=== PATIENT | female | born 1945 | race Caucasian/White ===

== ENCOUNTER 2021-03-17 13:40 | Observation (INO) ==
--- NOTE | 2021-03-17 14:03 | Emergency Department Note ---
Impression & Plan Left arm pain, Diabetes, Hypertension ED Provider Note NAME: YASMEEN WILKES AGE: 76 SEX: F : 1945 ARRIVES VIA: Walk-In INFORMANT: Patient, ED PROVIDER(S): Fredrick Callejas MD Chief Complaint: Arm pain HPI: Patient does present due to concern for left arm pain. Patient states that she had 2 episodes during the past week. Patient believes that she had an episode Friday or Friday evening where she had left-sided arm pain that was dull achy and rating down the left upper extremity. The patient had a re currence of this yesterday. The patient does admit that this did occur while crocheting and she is trying to complete a blanket for her great granddaughter. The patient denies any known heart history but does have family history and father and mother of heart disease. Patient denies any upper respiratory symptoms. The patient is right-hand dominant. The patient denies any recent overuse or trauma to the left upper extremity. The patient does relate that she did take an aspirin and Tylenol last evening which improved her symptoms. The patient had sent a note to her primary care physician's office who was referred here for further evaluation and treatment to be Dr. Marcos. Patient denies any history of DVT or PE. No recent surgeries, procedures, or hospitalizations. ROS: See HPI for pertinent positives and negatives. A total of 10 systems were reviewed and otherwise negative. Past medical history: See below Surgical history: See below Social history: See below Physical Exam: GENERAL: NAD, wearing glasses, wearing a mask, non-toxic. EYE EXAM: Normal conjunctiva. PERRL, no anisocoria and EOM's grossly intact w/o pain. NECK: Supple, no nuchal rigidity, no adenopathy, non-tender. No signs of meningismus. LUNGS: Clear to auscultation. Normal chest wall mechanics. HEART: NSR, no MRG. ABDOMEN: Abdomen soft, non-tender, normo-active bowel sounds, no masses, no rebound or guarding. BACK: No CVA TTP. SKIN: No rashes and no bruising. UPPER EXTREMITIES: Upper extremities are grossly normal. No reproducible arm pain with good range of motion, no obvious deformity, neurovascular intact distally. LOWER EXTREMITIES: Grossly normal, no edema. Negative Homans' sign bilaterally. NEURO EXAM: A&O x3, cranial nerves II-XII grossly intact, normal speech, moves all 4 extremities on command w/o issue. Differential diagnoses: Cardiac ischemia, aortic dissection, pulmonary embolism, pneumothorax, pneumonia, pericarditis, myocarditis, esophageal rupture, GERD, cholecystitis, pancreatitis, musculoskeletal, as well as other pathologies. Course: Patient was seen and evaluated the bedside. Full history physical exam was performed. EKG interpreted by me Normal sinus rhythm, rate of 98, wide QRS, left axis deviation, bundle branch block pattern. T wave inversion in lead III as well as anteriorly Patient's right bundle branch block and T wave inversion appears to be old from comparison EKG July 22, 2019. The patient did have worsening T wave inversions in June 2019 in the lateral leads which are no longer present today. Imaging Studies: See Below Cardiac monitoring: An order was placed for continuous cardiac monitoring. The monitor shows a rate of 88 with sinus rhythm. MDM: Patient was seen due to concern for intermittent left upper extremity pain. The patient does not have any reproducible pain or neck pain. Patient's EKG does not appear acutely changed. The patient's troponin is acceptable. Patient has very mild leukopenia with a normal H&H and platelet count. The patient's kidney function is unremarkable. Patient is not scheduled. I discussed with the patient that this could be atypical chest pain and the concern was that she could still have disease without having a positive troponin. Also stated that given her lack of acute pain at the time that she presented symptoms and negative EKG does not rule out heart disease either. After further discussion with the patient and patient's at bedside they are amenable to observati on and treatment. I did speak the on-call hospitalist Nadine Mtz PA-C and the patient was admitted to the medicine service by Dr. Mohamud. Past Med/Surg History Medical History Diabetes mellitus, type 2 NIDDM Hearing deficit History of nephrolithiasis History of TMJ disorder LEFT SIDE-LAST LOCKED 1 YEAR AGO-CAN MASSAGE ARE TO SHIFT JAW Hyperlipidemia Hypertension Osteoarthritis Urgency of urination Surgical History History of cataract surgery LEFT History of colonoscopy with polypectomy History of dilatation and curettage History of left breast biopsy x2--benign History of lithotripsy x5 History of right cataract surgery SEP 2019 History of tooth extraction Family History Father Family history of diabetes mellitus Lung cancer Grandmother Heart disease Grandfather Heart disease Family/Other No problems noted. Grandmother (Paternal) Family history of diabetes mellitus Sister No family history of adverse response to anesthesia PONV Social History Smoking Status: Former smoker Tobacco Type: Cigarettes packs per day: 0.5; Years Smoked: 10; Number of Years Since Quit: 35; Second Hand Exposure: Yes (FATHER SMOKED); Hx Alcohol Use: Yes Alcohol type: wine and hard liquor Alcohol Intake Frequency: 2-4 x/Month Hx Substance Use: No Preferred Language: Chinese Communication Ability: Effective Destination Coordinator Required: No Beliefs That Will Affect Care: None marital status: Current Living Situation: Spouse current occupational status: retired Feels Safe at Home: Yes Assistive Devices: Glasses Allergies Allergies Allergy/AdvReac Type Severity Reaction Status Date / Time clonidine Allergy Mild "fuzzy" Verified 03/17/21 15:41 feeling Home Meds Home Medications Medication Instructions Recorded Confirmed aspirin 81 mg tablet,delayed 81 mg PO BID PRN 07/29/19 03/17/21 release cyanocobalamin (vitamin B-12) 1,000 mcg PO QAM 07/29/19 03/17/21 1,000 mcg tablet (Vitamin B-12) lisinopril 5 mg tablet 5 mg PO QAM 07/29/19 03/17/21 meloxicam 15 mg tablet 15 mg PO DAILY PRN 07/29/19 03/17/21 metformin 500 mg tablet 500 mg PO TID 07/29/19 03/17/21 potassium citrate 15 mEq (1,620 15 meq PO BID 07/29/19 03/17/21 mg) tablet,extended release (Urocit-K 15) rosuvastatin 5 mg tablet 5 mg PO HS 07/29/19 03/17/21 acetaminophen 500 mg tablet 500 mg PO Q6H PRN 03/17/21 03/17/21 (Tylenol Extra Strength) Results & Data (ED) Vital Signs Vital Signs - 24 hr 03/17/21 13:43 03/17/21 14:43 03/17/21 16:30 Temperature 36 C L Temperature Source Temporal Artery Scan Oral Pulse Rate 102 H Pulse Rate [Apical] 74 Respiratory Rate 18 20 Respiratory Effort / Characteristics Non-Labored Non-Labored Respiratory Depth Normal Normal Blood Pressure 150/104 H Blood Pressure [Right Arm] 129/94 Blood Pressure Mean 119 Blood Pressure Mean [Right Arm] 105 Pulse Oximetry 99 96 Oxygen Delivery Method Room Air Room Air Room Air Sepsis Recent Fever Within 48 Hours No Sepsis New/Unexplained Change in Mental Status No Sepsis Action Taken by Nursing No Action Required 03/17/21 18:30 Temperature Temperature Source Pulse Rate Pulse Rate [Apical] 70 Respiratory Rate 18 Respiratory Effort / Characteristics Respiratory Depth Blood Pressure Blood Pressure [Right Arm] 130/78 Blood Pressure Mean Blood Pressure Mean [Right Arm] 95 Pulse Oximetry 98 Oxygen Delivery Method Sepsis Recent Fever Within 48 Hours Sepsis New/Unexplained Change in Mental Status Sepsis Action Taken by Long-Term Medications Current Medication List: was personally reviewed by me Laboratory Data Attestation: I reviewed the patient's lab results. Result diagrams: 03/17/21 14:30 03/17/21 14:30 Lab Results 03/17/21 03/17/21 03/17/21 Range/Units 14:30 14:30 14:30 WBC 4.69 L (4.8-10.8) K/uL RBC 4.62 (4.2-5.4) M/uL Hgb 13.0 (12.0-16.0) g/dL Hct 41.1 (37-47) % MCV 89.0 (80-100) fL MCH 28.1 (25-34) pg MCHC 31.6 L (32-36) g/dL RDW Std Deviation 48.8 H (36.4-46.3) fL RDW Coeff of Zoila 15.1 H (11.5-14.5) % Plt Count 209 (130-400) K/uL MPV 11.0 H (7.4-10.4) fL Immature Gran % (Auto) 0.0 % Neut % (Auto) 61.0 % Lymph % (Auto) 27.5 % [place] % (Auto) 9.4 % Eos % (Auto) 1.9 % Baso % (Auto) 0.2 % Neut # (Auto) 2.86 (1.4-6.5) K/uL Lymph # (Auto) 1.29 (1.2-3.4) K/uL [place] # (Auto) 0.44 (0.11-0.59) K/uL Eos # (Auto) 0.09 (0-0.5) K/uL Baso # (Auto) 0.01 (0-0.2) K/uL Immature Gran # (Auto) 0.00 (0.00-0.02) K/uL PT 9.6 (9.0-12.0) Seconds INR 0.9 (0.9-1.1) APTT 26.6 (21.0-31.0) Seconds PTT Ratio 1.0 Sodium 143 (136-145) mmol/L Potassium 3.9 (3.5-5.1) mmol/L Chloride 106 (98-107) mmol/L Carbon Dioxide 27 (21-32) mmol/L Anion Gap 10 (3-11) BUN 14 (6-23) mg/dl Creatinine 0.75 (0.6-1.2) mg/dl Est Cr Clr Drug Dosing 63.3 ml/min Est GFR ( Amer) 90.4 ml/min Est GFR (Non-Af Amer) 78.0 ml/min BUN/Creatinine Ratio 18.7 (10-20) Glucose 102 H (70-99(Fasting)) mg/dl Calcium 9.1 (8.5-10.1) mg/dl Total Bilirubin 0.5 (0.2-1.0) mg/dl AST 19 (13-39) U/L ALT 12 (7-52) U/L Alkaline Phosphatase 61 (34-104) U/L Troponin I < 0.03 (0-0.04) ng/ml Total Protein 6.9 (6.0-8.3) gm/dl Albumin 4.0 (3.4-5.0) gm/dl Globulin 2.9 (2.5-4.0) gm/dl Albumin/Globulin Ratio 1.4 (0.9-2) SARS-CoV-2, RNA, NAAT (NEGATIVE) 03/17/21 Range/Units 17:00 WBC (4.8-10.8) K/uL RBC (4.2-5.4) M/uL Hgb (12.0-16.0) g/dL Hct (37-47) % MCV (80-100) fL MCH (25-34) pg MCHC (32-36) g/dL RDW Std Deviation (36.4-46.3) fL RDW Coeff of Zoila (11.5-14.5) % Plt Count (130-400) K/uL MPV (7.4-10.4) fL Immature Gran % (Auto) % Neut % (Auto) % Lymph % (Auto) % [place] % (Auto) % Eos % (Auto) % Baso % (Auto) % Neut # (Auto) (1.4-6.5) K/uL Lymph # (Auto) (1.2-3.4) K/uL [place] # (Auto) (0.11-0.59) K/uL Eos # (Auto) (0-0.5) K/uL Baso # (Auto) (0-0.2) K/uL Immature Gran # (Auto) (0.00-0.02) K/uL PT (9.0-12.0) Seconds INR (0.9-1.1) APTT (21.0-31.0) Seconds PTT Ratio Sodium (136-145) mmol/L Potassium (3.5-5.1) mmol/L Chloride (98-107) mmol/L Carbon Dioxide (21-32) mmol/L Anion Gap (3-11) BUN (6-23) mg/dl Creatinine (0.6-1.2) mg/dl Est Cr Clr Drug Dosing ml/min Est GFR ( Amer) ml/min Est GFR (Non-Af Amer) ml/min BUN/Creatinine Ratio (10-20) Glucose (70-99(Fasting)) mg/dl Calcium (8.5-10.1) mg/dl Total Bilirubin (0.2-1.0) mg/dl AST (13-39) U/L ALT (7-52) U/L Alkaline Phosphatase (34-104) U/L Troponin I (0-0.04) ng/ml Total Protein (6.0-8.3) gm/dl Albumin (3.4-5.0) gm/dl Globulin (2.5-4.0) gm/dl Albumin/Globulin Ratio (0.9-2) SARS-CoV-2, RNA, NAAT NEGATIVE (NEGATIVE) Imaging Data Radiologist's Impression: Chest X-Ray 03/17/21 13:47 SINGLE VIEW CHEST CLINICAL HISTORY: Atypical chest pain FINDINGS: An AP, portable, upright chest radiograph is compared to study dated 07/14/2019. The cardiomediastinal silhouette is unremarkable. There is mild bibasilar atelectasis. The lungs and pleural spaces are otherwise clear. No pneumothorax is seen. The skeletal structures are osteopenic. The bony thorax is grossly intact. An indeterminant 2.5 cm linear density projects over the right upper quadrant of the abdomen. IMPRESSION: 1. No active disease in the chest. 2. An indeterminant 2.5 cm linear density projects over the right upper quadrant of the abdomen. Clinical correlation will be required. ACT 112: Negative or not required by law. Electronically signed by: Chace Juan M.D. 03/17/2021 3:01 PM Discharge Plan Visit Data Chief Complaint: Cardiac Assessment Stated Complaint: PAIN INTO LEFT ARM, UNKNOWN REASON,DIZZINESS ED Provider: Fredrick Callejas Discharge Problem: Left arm pain, Diabetes, Hypertension Forms Stand Alone Forms: [facility] [place] [facility] Prescriptions Prescriptions: No Action metformin 500 mg Tablet 500 mg PO TID RF: 0 meloxicam 15 mg Tablet 15 mg PO DAILY PRN (Reason: Pain) RF: 0 cyanocobalamin (vitamin B-12) [Vitamin B-12] 1,000 mcg Tablet 1,000 mcg PO QAM RF: 0 aspirin 81 mg Tablet,Delayed Release (Dr/Ec) 81 mg PO BID PRN (Reason: chest or arm pain) RF: 0 lisinopril 5 mg Tablet 5 mg PO QAM RF: 0 rosuvastatin 5 mg Tablet 5 mg PO HS RF: 0 potassium citrate [Urocit-K 15] 15 mEq Tablet Extended Release 15 meq PO BID RF: 0 acetaminophen [Tylenol Extra Strength] 500 mg Tablet 500 mg PO Q6H PRN (Reason: Pain) RF: 0 Referrals Referrals: Aldair Godoy, [Primary Care Provider] -
[2021-03-17 14:44] LABS: Basophils # (auto) 0.01 K/uL (0-0.2); Basophils % (auto) 0.2 %; Eosinophils # (auto) 0.09 K/uL (0-0.5); Eosinophils % (auto) 1.9 %; Hematocrit (blood only) 41.1 % (37-47); Lymphocytes # (auto) 1.29 K/uL (1.2-3.4); Lymphocytes % (auto) 27.5 %; Mean Corpuscular Hemoglobin 28.1 pg (25-34); Mean Corpuscular Hgb Conc 31.6 g/dL (32-36); Monocytes # (auto) 0.44 K/uL (0.11-0.59); Monocytes % (auto) 9.4 %; Neutrophils # (auto) 2.86 K/uL (1.4-6.5); Platelet Count 209 K/uL (130-400); RDW Coefficient of Variation 15.1 % (11.5-14.5); RDW Standard Deviation 48.8 fL (36.4-46.3); Red Blood Count 4.62 M/uL (4.2-5.4); White Blood Count 4.69 K/uL (4.8-10.8)
[2021-03-17 14:55] LABS: INR 0.9 (0.9-1.1); Partial Thromboplastin Time 26.6 Seconds (21.0-31.0); Prothrombin Time 9.6 Seconds (9.0-12.0)
--- NOTE | 2021-03-17 15:03 | XRay Report ---
SINGLE VIEW CHEST CLINICAL HISTORY: Atypical chest pain FINDINGS: An AP, portable, upright chest radiograph is compared to study dated 07/14/2019. The cardiom ediastinal silhouette is unremarkable. There is mild bibasilar atelectasis. The lungs and pleural spa aminata are otherwise clear. No pneumothorax is seen. The skeletal structures are osteopenic. The bony th orax is grossly intact. An indeterminant 2.5 cm linear density projects over the right upper quadrant of the abdomen. IMPRESSION: 1. No active disease in the chest. 2. An indeterminant 2.5 cm linear density projects over the right upper quadrant of the abdomen. Clin ical correlation will be required. ACT 112: Negative or not required by law. Electronically signed by: Chace Juan M.D. 03/17/2021 3:01 PM
[2021-03-17 15:11] LABS: Alanine Aminotransferase 12 U/L (7-52); Albumin Globulin Ratio 1.4 (0.9-2); Alkaline Phosphatase 61 U/L (34-104); Anion Gap 10 (3-11); Aspartate Aminotransferase 19 U/L (13-39); BUN Creatinine Ratio 18.7 (10-20); Bilirubin,Total 0.5 mg/dl (0.2-1.0); Blood Urea Nitrogen 14 mg/dl (6-23); Calcium 9.1 mg/dl (8.5-10.1); Carbon Dioxide 27 mmol/L (21-32); Chloride 106 mmol/L (98-107); Creatinine Clr Calc Pharmacy 63.3 ml/min; Est GFR (African American) 90.4 ml/min; Globulin 2.9 gm/dl (2.5-4.0); Glucose 102 mg/dl (70-99(Fasting)); Potassium 3.9 mmol/L (3.5-5.1); Sodium 143 mmol/L (136-145); Total Protein 6.9 gm/dl (6.0-8.3); Troponin I < 0.03 ng/ml (0-0.04)
--- NOTE | 2021-03-17 17:58 | History & Physical Report ---
Date of Service March 17, 2021 Assessment & Plan (1) Left arm pain: (2) Diabetes: (3) Hypertension: (4) Hyperlipidemia: Plan: This is a 76-year-old female who has significant past medical history for controlled T2DM, HTN, HLD, RBBB who presents to ED due to left arm pain x2 separate occasions. Initial troponin WNL EKG 90 bpm, RBBB, improved lateral t waves from prior ecg Currently L arm pain is absent Given Age, F, RF of HTN, HLD, T2DM will admit to r/o cardiac etiology of sx L arm pain - resolved Reported Dizziness - resolved admit to tele cycle trops, repeat ecg obtain echocardiogram a1c, lipid panel in a.m. last stress test 2015 obtain cervical XR r/o arthritis, stenosis [id number] Last A1c 5.8 on 10/17/2020 Obtain A1c in a.m. Hold metformin NovoLog per protocol HTN Currently 129/94 Continue lisinopril HLD Continue statin Raynauds phenomenon pt reports hx of fingers turning white/blue in the extreme cold, digits are always cold has never had this evaluated recommend f/u with PCP regarding further evaluation DVT ppx: Sq Lovenox Dispo: tele FULL CODE PCP: Artur Godoy Pt was seen and examined in collaboration with Dr. Mohamud, please see addendum The chart was completed utilizing [employer] Speech voice recognition software. Gra mmatical errors, random word insertions, pronoun errors, and incomplete sentences are an occasional consequence of this system due to software limitations, ambient noise, and hardware issues. Any formal questions or concerns about the content, text, or information contained within the body of this dictation should be directly addressed to the provider for clarification. History of Present Illness Chief Complaint: L arm pain x 2 different occasions. Primary Care Provider: Aldair Godoy, This is a 76-year-old female who has significant past medical history for controlled T2DM, HTN, HLD, RBBB who presents to ED due to left arm pain x2 separate occasions. Of significance approximately 5 days ago patient and her were doing heavy shoveling due to a snowstorm. The next day she was sitting down crocheting a baby blanket for her first great grandchild when she developed left arm pain. Pain started at the top of her left shoulder and radiated to her left wrist. She does not feel pain went into fingers. She denies any numbness. She is unsure how long it took her symptoms to resolve. She did take a Tylenol and a baby aspirin, and when she woke up the next morning her symptoms resolved. Yesterday she was again sitting and crocheting the baby blanket when the pain returned. She rated the pain approximately a 5 out of 10. She has history of kidney stones and states, "nothing is as bad as this." She again took Tylenol and baby aspirin, but when she went to stand up she overall felt dizzy and off-balance. She feels symptoms lasted for couple hours and resolved. She denies any associated head or neck pain. She further denies any associated chest pain, shortness of breath, palpitations, hemoptysis, diaphoresis, syncope, lightheadedness, nausea or vomiting. She has never experienced anything like this in the past. She does have positive family history of heart disease in her family. She states grandparents on both sides as well as her mother and father. Both parents lived into their 80s. She is u nsure at the age of onset of heart disease in her family. She is a former smoker, but quit 35 years ago and she does drink occasional alcohol. She is otherwise pretty active. The day prior to onset of symptoms when she was shoveling snow she was exerting herself and denies ever experiencing any chest pain or shortness of breath. Also to note patient does admit when it is very cold her fingers turn white, and she has never had this evaluated. She has never been diagnosed with Raynaud's. Patient ended up presenting to ED due to emailing PCP symptoms, and they recommended she be evaluated in ED. In ED patient remained hemodynamically stable. Her EKG appeared unchanged from previous although does reveal a chronic right bundle branch block. Her CBC, CMP and troponin were otherwise unremarkable. Allergies Allergy/AdvReac Type Severity Reaction Status Date / Time clonidine Allergy Mild "fuzzy" Verified 03/17/21 15:41 feeling Home Medications Medication Instructions Recorded Confirmed Type aspirin 81 mg tablet,delayed 81 mg PO BID PRN 07/29/19 03/17/21 History release cyanocobalamin (vitamin B-12) 1,000 mcg PO QAM 07/29/19 03/17/21 History 1,000 mcg tablet (Vitamin B-12) lisinopril 5 mg tablet 5 mg PO QAM 07/29/19 03/17/21 History meloxicam 15 mg tablet 15 mg PO DAILY PRN 07/29/19 03/17/21 History metformin 500 mg tablet 500 mg PO TID 07/29/19 03/17/21 History potassium citrate 15 mEq (1,620 15 meq PO BID 07/29/19 03/17/21 History mg) tablet,extended release (Urocit-K 15) rosuvastatin 5 mg tablet 5 mg PO HS 07/29/19 03/17/21 History acetaminophen 500 mg tablet 500 mg PO Q6H PRN 03/17/21 03/17/21 History (Tylenol Extra Strength) Past Med/Surg History Medical History Diabetes mellitus, type 2 NIDDM Hearing deficit History of nephrolithiasis History of TMJ disorder LEFT SIDE-LAST LOCKED 1 YEAR AGO-CAN MASSAGE ARE TO SHIFT JAW Hyperlipidemia Hypertension Osteoarthritis Urgency of urination Surgical History History of cataract surgery LEFT History of colonoscopy with polypectomy History of dilatation and curettage History of left breast biopsy x2--benign History of lithotripsy x5 History of right cataract surgery OCT 27 2019 History of tooth extraction Family History Father Family history of diabetes mellitus Lung cancer Grandmother Heart disease Grandfather Heart disease Family/Other No problems noted. Grandmother (Paternal) Family history of diabetes mellitus Sister No family history of adverse response to anesthesia PONV Social History Smoking Status: Former smoker Tobacco Type: Cigarettes packs per day: 0.5; Years Smoked: 10; Number of Years Since Quit: 35; Second Hand Exposure: Yes (FATHER SMOKED); Hx Alcohol Use: Yes Alcohol type: wine and hard liquor Alcohol Intake Frequency: 2-4 x/Month Hx Substance Use: No Preferred Language: Danish Communication Ability: Effective B2B Outside Sales Representative Required: No Beliefs That Will Affect Care: None marital status: Current Living Situation: Spouse current occupational status: retired Feels Safe at Home: Yes Assistive Devices: Glasses Review of Systems Review of Systems: All systems reviewed & are unremarkable except as noted in HPI & below Physical Exam Physical Exam: Constitutional: WD/WN, vitals as above, NAD, sitting up in bed, pleasant, conversing easily Head: Normocephalic, Atraumatic Eyes: PERRL, conjunctivae normal, anicteric sclerae ENMT: external ear and nose normal, oropharynx normal Neck: trachea midline, no thyromegaly normal visual inspection Respiratory: normal respiratory effort, lungs clear to auscultation, no wheeze, rales, rhonchi. Normal insp/exp effort, no accessory muscle use Cardiovascular: RRR, no murmur, no edema Vessels: no JVD or carotid bruit Chest: normal inspection of chest Abdomen: normal bowel sounds, soft, nontender, no hepatosplenomegaly Musculoskeletal: no cyanosis or clubbing, extremities motor strength 5/5 , good rom, sx not reproducible Skin: no rashes, warm and dry normal turgor Neurologic: PERRL, EOMI, accommodation nl, no face palsy, no dysarthria CN's II-XI intact bilaterally and moves all extremities Psychiatric: A+Ox3, euthymic affect Lymphatic: no cervical or axillary lymphadenopathy : deferred Results & Data Results & Data ([facility]) Vital Signs (Past 12 Hours) Vital Signs Temp Pulse Pulse Resp BP BP Pulse Ox 03/17/21 16:30 74 20 129/94 96 03/17/21 13:43 36 C L 102 H 18 150/104 H 99 Diagnostic Findings Chest X-Ray 03/17/21 13:47 SINGLE VIEW CHEST CLINICAL HISTORY: Atypical chest pain FINDINGS: An AP, portable, upright chest radiograph is compared to study dated 07/14/2019. The cardiomediastinal silhouette is unremarkable. There is mild bibasilar atelectasis. The lungs and pleural spaces are otherwise clear. No pneumothorax is seen. The skeletal structures are osteopenic. The bony thorax is grossly intact. An indeterminant 2.5 cm linear density projects over the right upper quadrant of the abdomen. IMPRESSION: 1. No active disease in the chest. 2. An indeterminant 2.5 cm linear density projects over the right upper quadrant of the abdomen. Clinical correlation will be required. ACT 112: Negative or not required by law. Electronically signed by: Chace Juan M.D. 03/17/2021 3:01 PM ECG Rate (beats per minute): 90 Rhythm: normal sinus Findings: + RBBB COVID-19 Results Results COVID-19 Adm Lab Results: RBC 4.62 M/uL (4.2-5.4) 03/17/21 WBC 4.69 K/uL (4.8-10.8) L 03/17/21 Hgb 13.0 g/dL (12.0-16.0) 03/17/21 Hct 41.1 % (37-47) 03/17/21 Plt Count 209 K/uL (130-400) 03/17/21 Neutrophils (%) (Auto) 61.0 % 03/17/21 Lymphocytes (%) (Auto) 27.5 % 03/17/21 Monocytes # (Auto) 0.44 K/uL (0.11-0.59) 03/17/21 Eosinophils # (Auto) 0.09 K/uL (0-0.5) 03/17/21 Immature Granulocyte % (Auto) 0.0 % 03/17/21 Neutrophils # (Auto) 2.86 K/uL (1.4-6.5) 03/17/21 Lymphocytes # (Auto) 1.29 K/uL (1.2-3.4) 03/17/21 Monocytes # (Auto) 0.44 K/uL (0.11-0.59) 03/17/21 Eosinophils # (Auto) 0.09 K/uL (0-0.5) 03/17/21 Basophils # (Auto) 0.01 K/uL (0-0.2) 03/17/21 Immature Granulocyte # (Auto) 0.00 K/uL (0.00-0.02) 03/17/21 Na 143 mmol/L (136-145) 03/17/21 K 3.9 mmol/L (3.5-5.1) 03/17/21 Cl 106 mmol/L (98-107) 03/17/21 CO2 27 mmol/L (21-32) 03/17/21 Anion Gap 10 (3-11) 03/17/21 BUN 14 mg/dl (6-23) 03/17/21 Creatinine 0.75 mg/dl (0.6-1.2) 03/17/21 BUN/Creatinine Ratio 18.7 (10-20) 03/17/21 Glucose Level 102 mg/dl (70-99(Fasting)) H 03/17/21 Ca 9.1 mg/dl (8.5-10.1) 03/17/21 Total Bilirubin 0.5 mg/dl (0.2-1.0) 03/17/21 AST/SGOT 19 U/L (13-39) 03/17/21 ALT/SGPT 12 U/L (7-52) 03/17/21 Alkaline Phosphatase 61 U/L (34-104) 03/17/21 Total Protein 6.9 gm/dl (6.0-8.3) 03/17/21 Albumin 4.0 gm/dl (3.4-5.0) 03/17/21 Globulin 2.9 gm/dl (2.5-4.0) 03/17/21 Albumin/Globulin Ratio 1.4 (0.9-2) 03/17/21 Troponin I < 0.03 ng/ml (0-0.04) 03/17/21 PTT 26.6 Seconds (21.0-31.0) 03/17/21 INR 0.9 (0.9-1.1) 03/17/21 SARS-CoV-2, RNA, NAAT NEGATIVE (NEGATIVE) 03/17/21 Chest X-Ray 03/17/21 Code Status & VTE Plan Code Status Full code VTE Prophylaxis Plan VTE Prophylaxis will be ordered: Yes Supervising Physician Co-Signing Physician Notes Attending Addendum: care coordinated with ABDULLAHI Duque please refer to her notes for full details, I agree with her notes patient seen and examined, records reviewed by myself as well on exam, patient seen resting in bed, comfortable not in distress no active chest pain, dyspnea, dizziness, palpitations no arm pain no other symptoms VS noted and reviewed oriented x 3, not in distress, speaks in sentences with no effort nor accessory muscle use normal rate, regular rhythm, no murmurs clear breath sounds bilaterally non distended, soft, nontender no bipedal edema, erythema, warmth left shoulder- mild edema, mild tenderness, full ROM no neuro deficits WBC 4.6 Hg 13 Crea 0.75 troponin negative EKG sinus rhythm, HR 90, no signs of acute ischemia/infarct ASSESSMENT AND PLAN LEFT ARM PAIN R/O ACS risk factors: previous smoker, DM, HTN, HLD, strong family history- both parents, grandparents (+) CAD troponin x 2 more sets echo EKG in AM will consult Cardiology R/O MUSCULOSKELETAL ETIOLOGY shoveled snow few days ago Cervical and shoulder xrays ordered other diagnoses and plan of care as per ABDULLAHI Duque's[place] notes plan of care discussed with patient in detail and at length all questions answered she is understanding, agreeable, comfortable with the plan of care Jame Mohamud MD
--- NOTE | 2021-03-17 20:39 | XRay Report ---
LEFT SHOULDER 3 VIEWS CLINICAL HISTORY: Left shoulder pain. FINDINGS: 3 views of the left shoulder are compared to study dated 01/10/2016. The skeletal structure s are osteopenic. There is no radiographic evidence of left shoulder fracture or dislocation. The gle nohumeral articulation is preserved. Mild productive degenerative change is noted at the acromioclavi cular joint. There is evidence of calcific tendinopathy. The visualized left lung parenchyma appears clear. IMPRESSION: 1. No acute bony abnormality is identified. 2. There is calcific tendinopathy of the left shoulder. Electronically signed by: Chace Juan M.D. 03/17/2021 8:37 PM
[2021-03-17] MEDS ORDERED: MAGNESIUM HYDROXIDE SUSP 30 ML UDC PO PRN (21:03)
[2021-03-17] MEDS ORDERED: CARBOHYDRATES FOR HYPOGLYCEMIA PO PRN (21:03)
[2021-03-17] MEDS ORDERED: GLUCOSE 40% GEL 15 GM TUBE PO PRN (21:03)
[2021-03-17] MEDS ORDERED: POLYETHYLENE (MIRALAX) 17 GM PACK PO PRN (21:03)
[2021-03-17] MEDS ORDERED: GLUCOSE 10 TABS/TUBE PO PRN (21:03)
[2021-03-17] MEDS ORDERED: ALUMINUM/MAGNESIUM SUSP 30 ML UDC PO PRN (21:03)
[2021-03-17] MEDS ORDERED: DEXTROSE 50% 50 ML SYRINGE IV PRN (21:03)
[2021-03-17] MEDS ORDERED: GLUCAGON FOR INJ 1 MG VIAL SQ PRN (21:03)
[2021-03-17] MEDS ORDERED: ONDANSETRON INJ 2 MG/ML 2 ML VIAL IV PRN (21:03)
[2021-03-17] MEDS ORDERED: ACETAMINOPHEN 325 MG TAB PO PRN (21:03)
--- NOTE | 2021-03-17 21:12 | XRay Report ---
KUB CLINICAL HISTORY: Right upper quadrant density seen on chest x-ray. FINDINGS: 2 AP supine abdominal radiographs are compared to study dated 04/24/2020 and correlated with chest x-ray dated 03/17/2021. There is a nonobstructed abdominal bowel gas pattern. No evidence of int raperitoneal free air is seen on these supine images. Fecal retention is noted in the rectosigmoid. T here are numerous bilateral nonobstructing renal calculi which measure up to 7 mm. Phleboliths are se en in the pelvis. The right upper quadrant density seen on the chest x-ray is no longer identified an d was likely external to the patient. The skeletal structures are osteopenic and appear intact. Mild lumbosacral spondylosis is noted. Sclerotic change is seen in the sacroiliac joints and pubic symphys is. IMPRESSION: 1. Nonobstructed abdominal bowel gas pattern. 2. Bilateral nephrolithiasis. 3. The linear density projecting over the right upper quadrant seen by chest x-ray is no longer ident ified and was likely external to the patient. Electronically signed by: Chace Juan M.D. 03/17/2021 9:10 PM
--- NOTE | 2021-03-17 21:13 | XRay Report ---
CERVICAL SPINE 3 VIEWS CLINICAL HISTORY: Left arm pain. FINDINGS: AP, lateral, and odontoid views of the cervical spine are obtained. No prior studies are av ailable for comparison at the time of dictation. The skeletal structures are osteopenic. There is no radiographic evidence of fracture or subluxation. The odontoid process and lateral masses appear inta ct as seen on the open-mouth view. The spinolaminar line is maintained. The atlantodental articulatio n is preserved noting productive degenerative change. Vertebral body height and alignment are maintai caitlin throughout the cervical spine. There is straightening of the cervical lordosis. Small anterior os teophytes are seen throughout. The spinous processes appear intact. Mild disc space narrowing is note d in the lower cervical region. There are small posterior disc osteophyte complexes at C4-C5 and C6-C 7. This may contribute to minimal acquired compromise of the central canal. Mild multilevel facet art hropathy is noted in the frontal view. The prevertebral soft tissues are normal as imaged. Apical govind g parenchyma is clear as visualized. IMPRESSION: 1. No acute bony abnormality is seen involving the cervical spine. 2. Osteopenia and mild spondylotic change as above. Electronically signed by: Chace Juan M.D. 03/17/2021 9:11 PM
[2021-03-17] MEDS ORDERED: ROSUVASTATIN CALCIUM 5 MG TAB PO SCH (21:30)
[2021-03-17] MEDS ORDERED: ENOXAPARIN INJ 40 MG/0.4 ML SYR SQ SCH (22:00)
[2021-03-17] MEDS: POTASSIUM CITRATE 10 MEQ TAB PO SCH (22:20)
[2021-03-17] MEDS: INSULIN ASPART PER UNIT SC SCH (23:00)
[2021-03-18 02:47] LABS: Hematocrit (blood only) 37.3 % (37-47); Hemoglobin 11.8 g/dL (12.0-16.0); Mean Corpuscular Hemoglobin 28.2 pg (25-34); Mean Corpuscular Hgb Conc 31.6 g/dL (32-36); Mean Platelet Volume 10.3 fL (7.4-10.4); Platelet Count 174 K/uL (130-400); RDW Coefficient of Variation 15.1 % (11.5-14.5); RDW Standard Deviation 48.9 fL (36.4-46.3); Red Blood Count 4.19 M/uL (4.2-5.4); White Blood Count 4.09 K/uL (4.8-10.8)
[2021-03-18 03:11] LABS: BUN Creatinine Ratio 20.6 (10-20); Calcium 8.3 mg/dl (8.5-10.1); Est GFR (African American) 101.7 ml/min; Est GFR (Non-African American) 87.7 ml/min; Potassium 3.9 mmol/L (3.5-5.1)
--- NOTE | 2021-03-18 07:30 | Electrocardiogram Report ---
Test Reason : Blood Pressure : / mmHG Vent. Rate : 090 BPM Atrial Rate : 090 BPM P-R Int : 164 ms QRS Dur : 136 ms QT Int : 392 ms P-R-T Axes : 031 -30 013 degrees QTc Int : 479 ms Normal sinus rhythm Left axis deviation Right bundle branch block Abnormal ECG When compared with ECG of 22-JUL-2019 11:33, Vent. rate has increased BY 30 BPM Nonspecific T wave abnormality no longer evident in Lateral leads Confirmed by Dimitri Ann ([id number]) on 03/18/2021 7:29:57 AM Referred By: REFERRED SELF Confirmed By:Leonardo Ann
[2021-03-18] MEDS: POTASSIUM CITRATE 10 MEQ TAB PO SCH (08:07)
[2021-03-18] MEDS ORDERED: CYANOCOBALAMIN 500 MCG TABLET (VITAMIN B-12) PO SCH (09:00)
[2021-03-18] MEDS ORDERED: lisinopril 5 MG TAB PO SCH (09:00)
--- NOTE | 2021-03-18 09:51 | Electrocardiogram Report ---
Test Reason : Blood Pressure : / mmHG Vent. Rate : 056 BPM Atrial Rate : 056 BPM P-R Int : 180 ms QRS Dur : 146 ms QT Int : 464 ms P-R-T Axes : 020 -24 -16 degrees QTc Int : 447 ms Sinus bradycardia Right bundle branch block Abnormal ECG When compared with ECG of 17-MAR-2021 14:10, Vent. rate has decreased BY 34 BPM Confirmed by Dimitri Ann ([id number]) on 03/18/2021 9:50:45 AM Referred By: REFERRED SELF Confirmed By:Leonardo Ann
[2021-03-18] MEDS: INSULIN ASPART PER UNIT SC SCH (10:00)
--- NOTE | 2021-03-18 11:14 | Hospitalist Progress Note ---
Date of Service March 18, 2021 Assessment & Plan (1) Left arm pain: (2) Diabetes: (3) Hypertension: (4) Hyperlipidemia: Plan: This is a 76-year-old female who has significant past medical history for controlled T2DM, HTN, HLD, RBBB who presents to ED due to left arm pain x2 separate occasions. Initial troponin WNL EKG 90 bpm, RBBB, improved lateral t waves from prior ecg Currently L arm pain is absent Given Age, F, RF of HTN, HLD, T2DM will admit to r/o cardiac etiology of sx LEFT ARM PAIN, RULE OUT ACS, ANGINA Reported Dizziness - resolved Troponins x3 negative EKG no signs of acute ischemia or infarct Echocardiogram no left wall motion abnormalities, moderate concentric LVH, EF 60 to 65%, grade 1 diastolic dysfunction Cardiology consulted, plan for stress test today Cervical spine x-ray: Osteophytes Left shoulder x-ray: Calcific tendinitis [id number] Last A1c 5.8 on 10/17/2020 A1c pending Hold metformin NovoLog per protocol HTN Continue lisinopril HLD Continue statin Raynauds phenomenon pt reports hx of fingers turning white/blue in the extreme cold, digits are always cold has never had this evaluated recommend f/u with PCP regarding further evaluation DVT ppx: Sq Lovenox Dispo: Discharge to home when cleared by cardiology service FULL CODE PCP: Artur Godoy plan of care discussed with patient in detail and at length all questions answered she is understanding, agreeable, comfortable with the plan of care Admission and Anticipated Discharge Date Admission Date: March 17, 2021 Subjective Follow-up for left arm pain, rule out ACS, etc. Seen resting in bed, comfortable, in good spirits States she slept well overnight No recurrence of left arm pain no chest pain, dyspnea, palpitations, dizziness No other symptoms Review of Systems Review of Systems: all noted and negative except for above Physical Exam Physical Exam: General- oriented x 3, not in distress, speaks in sentences with no effort or accessory muscle use Eyes- anicteric Neck- no JVD Lungs- clear breath sounds bilaterally, no rales/wheezes Heart- normal rate, regular rhythm; no murmurs Abdomen- normal bowel sounds, nondistended, soft, nontender Extremities- no pretibial edema, no calf tenderness Neuro- alert, oriented x 3; no gross focal neurologic deficits Skin- warm & dry Results & Data Results & Data ([place]) Vital Signs (Past 12 Hours) Vital Signs Temp Pulse Pulse Resp BP Pulse Ox 03/18/21 10:02 55 L 03/18/21 07:41 36.5 C 63 16 148/83 H 96 03/18/21 02:00 36.3 C L 52 L 18 104/64 100 all noted and reviewed including below (1) Hypertension Hypertension type: unspecified Qualified Code(s): I10 - Essential (primary) hypertension
--- NOTE | 2021-03-18 11:44 | Discharge Summary ---
Date of Service March 18, 2021 Admission HPI Per Admitting Provider This is a 76-year-old female who has significant past medical history for controlled T2DM, HTN, HLD, RBBB who presents to ED due to left arm pain x2 separate occasions. Of significance approximately 5 days ago patient and her were doing heavy shoveling due to a snowstorm. The next day she was sitting down crocheting a baby blanket for her first great grandchild when she developed left arm pain. Pain started at the top of her left shoulder and radiated to her left wrist. She does not feel pain went into fingers. She denies any numbness. She is unsure how long it took her symptoms to resolve. She did take a Tylenol and a baby aspirin, and when she woke up the next morning her symptoms resolved. Yesterday she was again sitting and crocheting the baby blanket when the pain returned. She rated the pain approximately a 5 out of 10. She has history of kidney stones and states, "nothing is as bad as this." She again took Tylenol and baby aspirin, but when she went to stand up she overall felt dizzy and off-balance. She feels symptoms lasted for couple hours and resolved. She denies any associated head or neck pain. She further denies any associated chest pain, shortness of breath, palpitations, hemoptysis, diaphoresis, syncope, lightheadedness, nausea or vomiting. She has never experienced anything like this in the past. She does have positive family history of heart disease in her family. She states grandparents on both sides as well as her mother and father. Both parents lived into their 80s. She is unsure at the age of onset of heart disease in her family. She is a former smoker, but quit 35 years ago and she does drink occasional alcohol. She is otherwise pretty active. The day prior to onset of symptoms when she was shoveling snow she was exerting herself and denies ever experiencing any chest pain or shortness of breath. Also to note patient does admit when it is very cold her fingers turn white, and she has never had this evaluated. She has never been diagnosed with Raynaud's. Patient ended up presenting to ED due to emailing PCP symptoms, and they recommended she be evaluated in ED. In ED patient remained hemodynamically stable. Her EKG appeared unchanged from previous although does reveal a chronic right bundle branch block. Her CBC, CMP and troponin were otherwise unremarkable. Admission Exam (Per Admitting) Constitutional Constitutional: WD/WN, vitals as above, NAD, sitting up in bed, pleasant, conversing easily Head: Normocephalic, Atraumatic Eyes: PERRL, conjunctivae normal, anicteric sclerae ENMT: external ear and nose normal, oropharynx normal Neck: trachea midline, no thyromegaly normal visual inspection Respiratory: normal respiratory effort, lungs clear to auscultation, no wheeze, rales, rhonchi. Normal insp/exp effort, no accessory muscle use Cardiovascular: RRR, no murmur, no edema Vessels: no JVD or carotid bruit Chest: normal inspection of chest Abdomen: normal bowel sounds, soft, nontender, no hepatosplenomegaly Musculoskeletal: no cyanosis or clubbing, extremities motor strength 5/5 , good rom, sx not reproducible Skin: no rashes, warm and dry normal turgor Neurologic: PERRL, EOMI, accommodation nl, no face palsy, no dysarthria CN's II-XI intact bilaterally and moves all extremities Psychiatric: A+Ox3, euthymic affect Lymphatic: no cervical or axillary lymphadenopathy : deferred Discharge Data Consultations 03/17/21 16:57 ED Decision to Admit Stat 03/17/21 17:04 ED Decision to Admit Stat 03/18/21 08:00 Consult Cardiology Routine Procedures Performed SINGLE VIEW CHEST CLINICAL HISTORY: Atypical chest pain FINDINGS: An AP, portable, upright chest radiograph is compared to study dated 07/14/2019. The cardiomediastinal silhouette is unremarkable. There is mild bibasilar atelectasis. The lungs and pleural spaces are otherwise clear. No pneumothorax is seen. The skeletal structures are osteopenic. The bony thorax is grossly intact. An indeterminant 2.5 cm linear density projects over the right upper quadrant of the abdomen. IMPRESSION: 1. No active disease in the chest. 2. An indeterminant 2.5 cm linear density projects over the right upper quadrant of the abdomen. Clinical correlation will be required. ACT 112: Negative or not required by law. CERVICAL SPINE 3 VIEWS CLINICAL HISTORY: Left arm pain. FINDINGS: AP, lateral, and odontoid views of the cervical spine are obtained. No prior studies are available for comparison at the time of dictation. The skeletal structures are osteopenic. There is no radiographic evidence of fracture or subluxation. The odontoid process and lateral masses appear intact as seen on the open-mouth view. The spinolaminar line is maintained. The atlantodental articulation is preserved noting productive degenerative change. Vertebral body height and alignment are maintained throughout the cervical spine. There is straightening of the cervical lordosis. Small anterior osteophyt es are seen throughout. The spinous processes appear intact. Mild disc space narrowing is noted in the lower cervical region. There are small posterior disc osteophyte complexes at C4-C5 and C6-C7. This may contribute to minimal acquired compromise of the central canal. Mild multilevel facet arthropathy is noted in the frontal view. The prevertebral soft tissues are normal as imaged. Apical lung parenchyma is clear as visualized. IMPRESSION: 1. No acute bony abnormality is seen involving the cervical spine. 2. Osteopenia and mild spondylotic change as above. Electronically signed by: Chace Juan M.D. 03/17/2021 9:11 PM LEFT SHOULDER 3 VIEWS CLINICAL HISTORY: Left shoulder pain. FINDINGS: 3 views of the left shoulder are compared to study dated 01/10/2016. The skeletal structures are osteopenic. There is no radiographic evidence of left shoulder fracture or dislocation. The glenohumeral articulation is preserved. Mild productive degenerative change is noted at the acromioclavicular joint. There is evidence of calcific tendinopathy. The visualized left lung parenchyma appears clear. IMPRESSION: 1. No acute bony abnormality is identified. 2. There is calcific tendinopathy of the left shoulder. Electronically signed by: Chace Juan M.D. 03/17/2021 8:37 PM KUB CLINICAL HISTORY: Right upper quadrant density seen on chest x-ray. FINDINGS: 2 AP supine abdominal radiographs are compared to study dated 04/24/2020 and correlated with chest x-ray dated 03/17/2021. There is a nonobstructed abdominal bowel gas pattern. No evidence of intraperitoneal free air is seen on these supine images. Fecal retention is noted in the rectosigmoid. There are numerous bilateral nonobstructing renal calculi which measure up to 7 mm. Phleboliths are seen in the pelvis. The right upper quadrant density seen on the chest x-ray is no longer identified and was likely external to the patient. The skeletal structures are osteopenic and appear intact. Mild lumbosacral spondylosis is noted. Sclerotic change is seen in the sacroiliac joints and pubic symphysis. IMPRESSION: 1. Nonobstructed abdominal bowel gas pattern. 2. Bilateral nephrolithiasis. 3. The linear density projecting over the right upper quadrant seen by chest x- ray is no longer identified and was likely external to the patient. Electronically signed by: Chace Juan M.D. 03/17/2021 9:10 PM Hospital Course (1) Left arm pain: (2) Diabetes: (3) Hypertension: (4) Hyperlipidemia: This is a 76-year-old female who has significant past medical history for controlled T2DM, HTN, HLD, RBBB who presents to ED due to left arm pain x2 separate occasions. Initial troponin WNL EKG 90 bpm, RBBB, improved lateral t waves from prior ecg Currently L arm pain is absent Given Age, F, RF of HTN, HLD, T2DM will admit to r/o cardiac etiology of sx LEFT ARM PAIN, ACUTE CORONARY SYNDROME RULED OUT LIKELY MUSCULOSKELETAL ETIOLOGY Reported Dizziness - resolved Troponins x3 negative EKG no signs of acute ischemia or infarct Echocardiogram no left wall motion abnormalities, moderate concentric LVH, EF 60 to 65%, grade 1 diastolic dysfunction Cardiology consulted s/p Stress Test: no inducible ischemia Cervical spine x-ray: Osteophytes Left shoulder x-ray: Calcific tendinitis no recurrence of left arm pain while admitted ff up with PCP in 1 week [id number] Last A1c 5.8 on 10/17/2020 A1c pending resume Metformin HTN Continue lisinopril HLD Continue statin Raynauds phenomenon pt reports hx of fingers turning white/blue in the extreme cold, digits are always cold has never had this evaluated recommend f/u with PCP regarding further evaluation DVT ppx: Sq Lovenox Dispo: Discharge to home when cleared by cardiology service FULL CODE PCP: Artur Godoy plan of care discussed with patient in detail and at length all questions answered she is understanding, agreeable, comfortable with the plan of care
--- NOTE | 2021-03-18 12:05 | Cardiology Consultation ---
Date of Consultation March 18, 2021 Assessment & Plan (1) Left arm pain: (2) Essential hypertension: (3) Right bundle branch block: (4) Hyperlipidemia: Patient is a 76-year-old female with multiple cardiovascular risk factors as outlined who presented with 2 episodes of left arm pain at rest. Concerns regarding multiple risk factors resulted in referral for cardiovascular evaluation. Cardiac enzymes are have been negative since admission echocardiogram demonstrates preserved LV systolic function. EKG initially not helpful given underlying conduction abnormalities but no acute ischemic changes Patient referred and subsequently underwent stress echocardiography is personally supervised by myself without evidence of stress-induced ischemia and good exercise tolerance without symptoms Symptoms appear noncardiac in nature. Patient should continue with risk factor modification and follow-up with PCP regarding mildly elevated blood pressure Recommend return with any further recurrence of symptoms History of Present Illness Reason for Consultation: Left arm pain at rest Requesting Physician: Jame Mohamud MD Attending Physician: Jame Mohamud MD History of Present Illness Patient is a 76-year-old female with underlying medical issues which include longstanding hypertension, hyperlipidemia on therapy, type 2 diabetes mellitus, chronic right bundle branch block who notes working vigorously shoveling snow and chipping ice approximately 5 days prior to admission. Following day patient while sitting at rest crocheting experienced left arm and shoulder discomfort radiating to her wrist. Symptoms resolved spontaneously. Patient had a similar episode the evening prior to admission once again while sedentary. She noted mild dizziness on standing afterwards and relayed information to her primary care physician who recommended ER evaluation. Patient's had no further symptoms since admission. Has no prior history of myocardial infarction angina, congestive heart failure, arrhythmias. No history of valvular disease. Takes her medications faithfully but does not check blood pressures at home. No recent fevers chills or unexplained infections. No bleeding difficulties. No acute change in weight appetite or functional capacity Patient concerned regarding risk factors and strong family history of cardiac disease Allergies Allergy/AdvReac Type Severity Reaction Status Date / Time clonidine Allergy Mild "fuzzy" Verified 03/17/21 15:41 feeling Home Medications Medication Instructions Recorded Confirmed Type aspirin 81 mg tablet,delayed 81 mg PO BID PRN 07/29/19 03/17/21 History release cyanocobalamin (vitamin B-12) 1,000 mcg PO QAM 07/29/19 03/17/21 History 1,000 mcg tablet (Vitamin B-12) lisinopril 5 mg tablet 5 mg PO QAM 07/29/19 03/17/21 History meloxicam 15 mg tablet 15 mg PO DAILY PRN 07/29/19 03/17/21 History metformin 500 mg tablet 500 mg PO TID 07/29/19 03/17/21 History potassium citrate 15 mEq (1,620 15 meq PO BID 07/29/19 03/17/21 History mg) tablet,extended release (Urocit-K 15) rosuvastatin 5 mg tablet 5 mg PO HS 07/29/19 03/17/21 History acetaminophen 500 mg tablet 500 mg PO Q6H PRN 03/17/21 03/17/21 History (Tylenol Extra Strength) Patient History Medical History Diabetes mellitus, type 2 NIDDM Hearing deficit History of nephrolithiasis History of TMJ disorder LEFT SIDE-LAST LOCKED 1 YEAR AGO-CAN MASSAGE ARE TO SHIFT JAW Hyperlipidemia Hypertension Osteoarthritis Urgency of urination Surgical History History of cataract surgery LEFT History of colonoscopy with polypectomy History of dilatation and curettage History of left breast biopsy x2--benign History of lithotripsy x5 History of right cataract surgery OCT 27 2019 History of tooth extraction Family History Father Family history of diabetes mellitus Lung cancer Grandmother Heart disease Grandfather Heart disease Family/Other No problems noted. 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: No Beliefs That Will Affect Care: None marital status: Current Living Situation: Spouse current occupational status: retired Feels Safe at Home: Yes Safety Concerns: Feels Safe At This Time Assistive Devices: Glasses Review of Systems Review of Systems: All systems reviewed & are unremarkable except as noted in HPI & below Physical Exam Constitutional: WD/WN, vitals as above Eyes: PERRL, conjunctivae normal, anicteric sclerae ENMT: external ear and nose normal, oropharynx normal Neck: trachea midline, no thyromegaly Respiratory: normal respiratory effort, lungs clear to auscultation Cardiovascular: Rate/Rhythm: regular rate and regular rhythm Heart Sounds: normal S1 and normal S2; no gallop and no murmur Palpation: normal PMI Vessels: normal carotid upstroke and radial pulses present; no JVD and no carotid bruit Extremities: no edema Gastrointestinal (Abdomen): normal bowel sounds, soft, nontender, no hepatosplenomegaly Musculoskeletal: no cyanosis or clubbing, extremities motor strength 5/5 Skin: no rashes, warm and dry Neurologic: PERRL, EOMI, accommodation nl, no face palsy, no dysarthria Psychiatric: A+Ox3, euthymic affect Results & Data ([facility]) Vital Signs (Past 12 Hours) Vital Signs Temp Pulse Pulse Pulse Resp BP Pulse Ox 03/18/21 11:43 36.5 C 70 63 16 148/83 H 96 03/18/21 10:02 55 L 03/18/21 07:41 36.5 C 63 16 148/83 H 96 03/18/21 02:00 36.3 C L 52 L 18 104/64 100 Laboratory Results Laboratory Results - last 24 hr 03/17/21 03/17/21 03/17/21 14:30 14:30 14:30 WBC 4.69 L RBC 4.62 Hgb 13.0 Hct 41.1 MCV 89.0 MCH 28.1 MCHC 31.6 L RDW Std Deviation 48.8 H RDW Coeff of Zoila 15.1 H Plt Count 209 MPV 11.0 H Immature Gran % (Auto) 0.0 Neut % (Auto) 61.0 Lymph % (Auto) 27.5 Emanuel % (Auto) 9.4 Eos % (Auto) 1.9 Baso % (Auto) 0.2 Neut # (Auto) 2.86 Lymph # (Auto) 1.29 Emanuel # (Auto) 0.44 Eos # (Auto) 0.09 Baso # (Auto) 0.01 Immature Gran # (Auto) 0.00 PT 9.6 INR 0.9 APTT 26.6 PTT Ratio 1.0 Sodium 143 Potassium 3.9 Chloride 106 Carbon Dioxide 27 Anion Gap 10 BUN 14 Creatinine 0.75 Est Cr Clr Drug Dosing 63.3 Est GFR ( Amer) 90.4 Est GFR (Non-Af Amer) 78.0 BUN/Creatinine Ratio 18.7 Glucose 102 H POC Glucose Estimat Average Glucose Hemoglobin A1c Calcium 9.1 Total Bilirubin 0.5 AST 19 ALT 12 Alkaline Phosphatase 61 Troponin I < 0.03 Total Protein 6.9 Albumin 4.0 Globulin 2.9 Albumin/Globulin Ratio 1.4 Triglycerides Cholesterol LDL Cholesterol, Calc VLDL Cholesterol, Calc HDL Cholesterol Cholesterol/HDL Ratio SARS-CoV-2, RNA, NAAT 03/17/21 03/17/21 03/17/21 17:00 21:29 22:16 WBC RBC Hgb Hct MCV MCH MCHC RDW Std Deviation RDW Coeff of Zoila Plt Count MPV Immature Gran % (Auto) Neut % (Auto) Lymph % (Auto) Emanuel % (Auto) Eos % (Auto) Baso % (Auto) Neut # (Auto) Lymph # (Auto) Emanuel # (Auto) Eos # (Auto) Baso # (Auto) Immature Gran # (Auto) PT INR APTT PTT Ratio Sodium Potassium Chloride Carbon Dioxide Anion Gap BUN Creatinine Est Cr Clr Drug Dosing Est GFR ( Amer) Est GFR (Non-Af Amer) BUN/Creatinine Ratio Glucose POC Glucose 93 Estimat Average Glucose Hemoglobin A1c Calcium Total Bilirubin AST ALT Alkaline Phosphatase Troponin I < 0.03 Total Protein Albumin Globulin Albumin/Globulin Ratio Triglycerides Cholesterol LDL Cholesterol, Calc VLDL Cholesterol, Calc HDL Cholesterol Cholesterol/HDL Ratio SARS-CoV-2, RNA, NAAT NEGATIVE 03/18/21 03/18/21 03/18/21 02:35 02:35 02:35 WBC 4.09 L RBC 4.19 L Hgb 11.8 L Hct 37.3 MCV 89.0 MCH 28.2 MCHC 31.6 L RDW Std Deviation 48.9 H RDW Coeff of Zoila 15.1 H Plt Count 174 MPV 10.3 Immature Gran % (Auto) Neut % (Auto) Lymph % (Auto) Emanuel % (Auto) Eos % (Auto) Baso % (Auto) Neut # (Auto) Lymph # (Auto) Emanuel # (Auto) Eos # (Auto) Baso # (Auto) Immature Gran # (Auto) PT INR APTT PTT Ratio Sodium 140 Potassium 3.9 Chloride 112 H Carbon Dioxide 28 Anion Gap 0 L BUN 13 Creatinine 0.63 Est Cr Clr Drug Dosing 75.0 Est GFR ( Amer) 101.7 Est GFR (Non-Af Amer) 87.7 BUN/Creatinine Ratio 20.6 H Glucose 95 POC Glucose Estimat Average Glucose Pending Hemoglobin A1c Pending Calcium 8.3 L Total Bilirubin AST ALT Alkaline Phosphatase Troponin I Total Protein Albumin Globulin Albumin/Globulin Ratio Triglycerides 60 Cholesterol 145 LDL Cholesterol, Calc 61 VLDL Cholesterol, Calc 12 HDL Cholesterol 72 Cholesterol/HDL Ratio 2.0 SARS-CoV-2, RNA, NAAT 03/18/21 03/18/21 03/18/21 02:35 07:29 11:35 WBC RBC Hgb Hct MCV MCH MCHC RDW Std Deviation RDW Coeff of Zoila Plt Count MPV Immature Gran % (Auto) Neut % (Auto) Lymph % (Auto) Emanuel % (Auto) Eos % (Auto) Baso % (Auto) Neut # (Auto) Lymph # (Auto) Emanuel # (Auto) Eos # (Auto) Baso # (Auto) Immature Gran # (Auto) PT INR APTT PTT Ratio Sodium Potassium Chloride Carbon Dioxide Anion Gap BUN Creatinine Est Cr Clr Drug Dosing Est GFR ( Amer) Est GFR (Non-Af Amer) BUN/Creatinine Ratio Glucose POC Glucose 92 92 Estimat Average Glucose Hemoglobin A1c Calcium Total Bilirubin AST ALT Alkaline Phosphatase Troponin I < 0.03 Total Protein Albumin Globulin Albumin/Globulin Ratio Triglycerides Cholesterol LDL Cholesterol, Calc VLDL Cholesterol, Calc HDL Cholesterol Cholesterol/HDL Ratio SARS-CoV-2, RNA, NAAT Diagnostic Findings EKG 03/18/2021, personally reviewed Sinus bradycardia with right bundle branch block acute changes Echocardiogram 03/18/2021 Left ventricle is normal in size with moderate left hypertrophy and basal septal thickening with normal wall motion, EF 60-65% and grade 1 diastolic dysfunction Aortic sclerosis without stenosis Stress echocardiography 03/18/2021 Patient exercised for 6 minutes on a standard Kyle protocol for an estimate met level 7 METS while achieving greater than 95% age-predicted maximal heart rate. Patient experienced no cardiac symptoms with only appropriate dyspnea. Blood pressure response was mildly hypertensive. There were no diagnostic EKG changes to suggest ischemia with limitation secondary to underlying conduction abnormality LV systolic function was normal at rest and stress with study negative for ischemia
[2021-03-19 07:36] LABS: Estimated Average Glucose 128 mg/dl; Hemoglobin A1C 6.1 % (4.5-5.6)
== END 2021-03-18 12:05 | disposition home or self-care (01) ==
LOC: 2N 13:40 → ED 13:40 → 2N 20:25